=== PATIENT | male | born 1950 | race Caucasian/White ===

== ENCOUNTER 2019-06-26 18:35 | Emergency (ER) | payer OTHER ==
[~2019-06-26] VITALS: Ht 167.6 cm; Wt 75.7 kg
[2019-06-26] MEDS ORDERED: PEPCID AC20 MG (18:58)
== END 2019-06-26 21:12 | disposition home or self-care (01) ==
LOC: ER 18:35
DX: N35.816 Other urethral stricture, male, overlapping sites (principal); R31.9 Hematuria, unspecified

== ENCOUNTER 2023-04-02 16:18 | Emergency (ER) | payer OTHER ==
[~2023-04-02] VITALS: Ht 165.1 cm; Wt 63.5 kg
[~2023-04-02 16:18] MED LIST: PEPCID AC20 MG
== END 2023-04-02 22:39 | disposition home or self-care (01) ==
LOC: ER
DX: J06.9 Acute upper respiratory infection, unspecified (principal); Z20.822 Contact with and (suspected) exposure to COVID-19